=== PATIENT | female | born 1960 ===

== ENCOUNTER 2018-05-24 12:30 | Inpatient (IN) | payer OTHER ==
[~2018-05-24] VITALS: Ht 152.4 cm; Wt 61.7 kg
[~2018-05-24 12:30] MED LIST: CLONAZEPAM1 MG PO; DOCUSATE SODIU100 MG PO; PERCOCET 5/3251 TAB PO
[2018-05-25] MEDS ORDERED: GABAPENTIN400 MG PO (17:11)
[2018-05-25] MEDS ORDERED: TRAMADOL HCL50 MG PO (17:12)
[2018-05-25] MEDS ORDERED: FLEXERIL PO (17:12)
[2018-05-25] MEDS ORDERED: ATIVAN1 M1 PO (17:14)
[2018-05-25] MEDS ORDERED: METROPOLO PO (17:14)
[2018-05-25] MEDS ORDERED: BENADRYL50 MG PO (17:15)
[2018-05-25] MEDS ORDERED: PLAVIX75 MG PO (17:15)
[2018-05-25] MEDS ORDERED: STELAZINE PO (17:16)
[2018-05-25] MEDS ORDERED: ZOLOFT25 MG PO (17:16)
[2018-05-25] MEDS ORDERED: BUMEX (17:17)
[2018-06-02] MEDS ORDERED: GABAPENTIN800 MG PO (13:28)
[2018-06-02] MEDS ORDERED: DOCUSATE SODIU100 MG PO (13:28)
[2018-06-02] MEDS ORDERED: ATIVAN1 MG PO (13:29)
[2018-06-02] MEDS ORDERED: PERCOCET 5-3251 EACH PO (13:29)
[2018-06-02] MEDS ORDERED: AMOX-CLAV 875-1 EACH PO (13:29)
== END 2018-06-03 15:12 | disposition home or self-care (01) | DRG 455 ==
LOC: O/R 06-02 06:20 → SURH 06-02 12:30 → SURG 06-02 14:05 → O/R 06-02 14:06 → SURG 06-02 17:25
PROVIDERS: Orthopaedic Surgery Orthopaedic Surgery of the Spine
PROC: 0SG30AJ Fusion of Lumbosacral Joint with Interbody Fusion Device, Posterior Approach, Anterior Column, Open Approach (ICD-10-PCS; 2018-06-02)
PROC: 0SG3071 Fusion of Lumbosacral Joint with Autologous Tissue Substitute, Posterior Approach, Posterior Column, Open Approach (ICD-10-PCS; 2018-06-02)
PROC: 0ST40ZZ Resection of Lumbosacral Disc, Open Approach (ICD-10-PCS; 2018-06-02)
PROC: 07DS3ZZ Extraction of Vertebral Bone Marrow, Percutaneous Approach (ICD-10-PCS; 2018-06-02)
PROC: 07DS3ZZ Extraction of Vertebral Bone Marrow, Percutaneous Approach (ICD-10-PCS; principal; 2018-06-02 12:30)
DX: M47.26 Other spondylosis with radiculopathy, lumbar region (principal); M51.16 Intervertebral disc disorders with radiculopathy, lumbar region; I10 Essential (primary) hypertension; M79.7 Fibromyalgia

== ENCOUNTER → 2020-05-03 07:00 | Outpatient (CLI) | payer OTHER ==
[~2020-05-03] VITALS: Ht 152.4 cm; Wt 62.6 kg
[~2020-05-03 07:00] MED LIST changes: +AMOX-CLAV 875-1 EACH PO; +ATIVAN1 M1 PO; +ATIVAN1 MG PO; +BENADRYL50 MG PO; +BUMEX; +FLEXERIL PO; +GABAPENTIN400 MG PO; +GABAPENTIN800 MG PO; +METROPOLO PO; +PERCOCET 5-3251 EACH PO; +PLAVIX75 MG PO; +STELAZINE PO; +TRAMADOL HCL50 MG PO; +ZOLOFT25 MG PO
== END | disposition home or self-care (01) ==
LOC: LAB 07:00 → EDSTATUS 05-10 10:30 → SURH 05-10 10:30 → LAB 06-18 07:11
PROVIDERS: ATTEND Orthopaedic Surgery Orthopaedic Surgery of the Spine
DX: U07.1 COVID-19 (principal); M50.023 Cervical disc disorder at C6-C7 level with myelopathy; Z01.812 Encounter for preprocedural laboratory examination

== ENCOUNTER 2020-08-07 05:15 | Day surgery (SDC) | payer OTHER ==
[~2020-08-07] VITALS: Ht 152.4 cm; Wt 63.5 kg
[2020-08-07] MEDS ORDERED: COLACE100 MG PO (16:21)
[2020-08-07] MEDS ORDERED: PERCOCET 5-3251 EACH PO (16:21)
[2020-08-07] MEDS ORDERED: DIAZEPAM5 MG PO (16:21)
== END 2020-08-08 12:00 | disposition home or self-care (01) ==
LOC: CIR.AMB 05:15 → O/R 17:09 → SURG 17:09 → O/R 17:33 → CIR.AMB 08-08 12:00 → SURG 08-08 16:52
PROVIDERS: ATTEND Orthopaedic Surgery Orthopaedic Surgery of the Spine
DX: M50.020 Cervical disc disorder with myelopathy, mid-cervical region, unspecified level (principal); Z20.822 Contact with and (suspected) exposure to COVID-19; M50.01 Cervical disc disorder with myelopathy, high cervical region; M48.02 Spinal stenosis, cervical region
CPT/HCPCS: 22551; 20930; 20939; 22845; 22853; C1776

== ENCOUNTER 2024-12-08 05:40 | Inpatient (IN) | payer OTHER ==
[~2024-12-08] VITALS: Wt 61.2 kg
[~2024-12-08 05:40] MED LIST changes: +COLACE100 MG PO; +DIAZEPAM5 MG PO
[2024-12-08] MEDS ORDERED: MEDROLPACK PO (07:49)
[2024-12-08] MEDS ORDERED: PERCOCET 5-3251 EACH PO (07:49)
[2024-12-08] MEDS ORDERED: AMOX-CLAV 875-1 EACH PO (07:49)
[2024-12-08] MEDS ORDERED: COLACE100 MG PO (07:50)
[2024-12-08] MEDS ORDERED: GABAPENTIN100 M2 PO (07:50)
[2024-12-08] MEDS ORDERED: NEURONTIN800 MG PO (07:51)
[2024-12-08] MEDS ORDERED: VANCOMYCIN HCL 1,000 MG VIAL ONE ×3 (08:23→20:04)
[2024-12-08] MEDS ORDERED: CEFAZOLIN SODIUM 1,000 MG VIAL ONE ×2 (08:23→18:45)
[2024-12-08] MEDS ORDERED: HEMOSTATIC MATRIX WITH THROMBIN KIT TOP ONE ×2 (09:51→11:45)
[2024-12-08] MEDS ORDERED: BUPIVACAINE HCL/MPF 0.5% 30ML VIAL ONE (09:51)
[2024-12-08] MEDS ORDERED: LIDOCAINE HCL 1%/EPINEPHRINE 20ML VIAL IJ ONE ×2 (09:51→11:45)
[2024-12-08] MEDS ORDERED: METHYLPREDNISOLONE SOD SUCC 125 MG VIAL ONE (09:52)
[2024-12-08] MEDS ORDERED: PROMETHAZINE HCL 50 MG/ML AMPUL IM PRN (10:30)
[2024-12-08] MEDS ORDERED: 0.9 % SODIUM CHLORIDE 1,000 ML IV SCH (10:30)
[2024-12-08] MEDS ORDERED: ENALAPRILAT DIHYDRATE 1.25 MG/ML VIAL IV PRN (10:30)
[2024-12-08] MEDS ORDERED: VANCOMYCIN HCL 1,000 MG VIAL IR ONE (11:45)
[2024-12-08] MEDS ORDERED: CEFAZOLIN SODIUM 1,000 MG VIAL IV ONE (11:45)
[2024-12-08] MEDS ORDERED: VANCOMYCIN HCL 1,000 MG VIAL SPEPROC ONE (11:45)
[2024-12-08] MEDS ORDERED: VANCOMYCIN HCL 1,000 MG VIAL IV ONE (11:45)
[2024-12-08] MEDS ORDERED: BUPIVACAINE HCL 30 ML VIAL IJ ONE (11:45)
[2024-12-08] MEDS ORDERED: METHYLPREDNISOLONE SOD SUCC 125 MG VIAL IV ONE (12:00)
[2024-12-08] MEDS ORDERED: DOCUSATE SODIUM 100MG CAP PO SCH (13:00)
[2024-12-08] MEDS ORDERED: MORPHINE SULFATE 4 MG/ML CARTRIDGE IV SCH (13:00)
[2024-12-08] MEDS ORDERED: MORPHINE SULFATE 4 MG/ML VIAL IV ONE (15:00)
[2024-12-08] MEDS ORDERED: FAMOtidine 20 MG TABLET PO SCH (17:00)
[2024-12-08] MEDS ORDERED: METHYLPREDNISOLONE SOD SUCC 125 MG VIAL IV SCH (17:00)
[2024-12-08] MEDS ORDERED: CEFAZOLIN SODIUM 1,000 MG in 0.9 % SODIUM CHLORIDE 50 ML IV SCH (17:00)
[2024-12-08 19:25] VITALS: BP 144/84; O2SAT 96
[2024-12-08] MEDS ORDERED: ACETAMINOPHEN 500 MG GEL..CAP PO SCH (20:00)
[2024-12-08] MEDS ORDERED: GABAPENTIN 800 MG TABLET PO SCH (21:00)
[2024-12-08] MEDS ORDERED: VANCOMYCIN HCL 1,000 MG VIAL IV SCH (21:00)
[2024-12-09] MEDS ORDERED: SODIUM CHLORIDE 0.45 % 1,000 ML IV SCH
[2024-12-09 00:13] VITALS: O2SAT 90
[2024-12-09 00:35] VITALS: BP 109/67; O2SAT 98
[2024-12-09 03:14] VITALS: O2SAT 90
[2024-12-09] MEDS ORDERED: OxyCODONE HCL 5 MG TABLET (ROXICODONE) PO PRN (06:01)
[2024-12-09] MEDS ORDERED: VANCOMYCIN HCL 1,000 MG VIAL ONE (06:34)
[2024-12-09] MEDS ORDERED: TAMSULOSIN HCL 0.4 MG CAP PO SCH (09:00)
[2024-12-09 09:18] VITALS: O2SAT 90
== END 2024-12-09 13:18 | disposition home or self-care (01) | DRG 451 ==
LOC: CIR.AMB 05:40 → SURH 15:54 → O/R 15:54 → SURH 18:00
PROVIDERS: ADMIT Orthopaedic Surgery Orthopaedic Surgery of the Spine; ATTEND Orthopaedic Surgery Orthopaedic Surgery of the Spine
PROC: 0SG704Z Fusion of Right Sacroiliac Joint with Internal Fixation Device, Open Approach (ICD-10-PCS; principal; 2024-12-08 09:45)
DX: M46.1 Sacroiliitis, not elsewhere classified (principal)